=== PATIENT | male | born 1995 | race Caucasian/White ===

== ENCOUNTER 2016-09-21 00:53 | Emergency (ER) | payer OTHER ==
[2016-09-21 01:02] VITALS: RESP 18
[2016-09-21] MEDS ORDERED: DICYCLOMINE 10 MG/ML 2 ML AMP IM STA (01:08)
[2016-09-21] MEDS ORDERED: SODIUM CHLORIDE 0.9% 1,000 ML IV STA (01:08)
[2016-09-21] MEDS ORDERED: METOCLOPRAMIDE 5 MG/ML 2 ML VIAL IVP STA (01:08)
--- NOTE | 2016-09-21 01:14 | ED ---
Nausea/Vomiting/Diarrhea HPI - General Chief complaint: Nausea/Vomiting/Diarrhea Stated complaint: Flu Symptoms Time Seen by Provider: 09/21/16 01:04 Source: patient, RN notes reviewed Mode of arrival: ambulatory Limitations: no limitations - History of Present Illness Initial comments: 20-year-old male presents emergency Department chief complaint of nausea vomiting diarrhea. He's had this for the past day. Discontinued nausea vomiting diarrhea. Patient denies any fever chills. Patient states son has similar symptoms. Patient states that he was concerned due to the worsening symptoms without that he should be seen. whole belly throwing up with their is not one point that is tender.Patient denies any recent fever, chills, shortness of breath, chest pain, back pain, numbness or tingling, dysuria or hematuria, constipation or headaches or visual changes, or any other current symptoms. - Related Data Home Medications Medication Instructions Recorded Confirmed Fexofenadine/Pseudoephedrine 1 each PO DAILY 06/05/16 06/05/16 [Agnes-D 24 Hour Tablet] Previous Rx's Medication Instructions Recorded Ondansetron Odt [Zofran ODT] 4 mg PO Q8HR PRN #20 tab 09/21/16 Allergies Allergy/AdvReac Type Severity Reaction Status Date / Time cephalexin monohydrate Allergy Rash/Hives Verified 09/21/16 01:02 [From [employer]] Review of Systems ROS Statement: Those systems with pertinent positive or pertinent negative responses have been documented in the HPI. ROS Other: All systems not noted in ROS Statement are negative. Past Medical History Past Medical History: No Reported History Additional Past Medical History / Comment(s): hives with anxiety History of Any Multi-Drug Resistant Organisms: None Reported Past Surgical History: Ear Surgery, Tonsillectomy Past Psychological History: ADD/ADHD, Anxiety Smoking Status: Current every day smoker Past Alcohol Use History: None Reported Past Drug Use History: None Reported General Exam - General Exam Comments Initial Comments: General: The patient is awake and alert, in no distress, and does not appear acutely ill. Eye: Pupils are equal, round. Ears, nose, mouth and throat: There are moist mucous membranes. Neck: The neck is supple, there is no tenderness. Cardiovascular: There is a regular rate and rhythm. No murmur, rub or gallop is appreciated. Respiratory: Lungs are clear to auscultation, respirations are non-labored, breath sounds are equal. No wheezes, stridor, rales, or rhonchi. Gastrointestinal: Soft, non-distended, non-tender abdomen without masses or organomegaly noted. There is no rebound or guarding present. No CVA tenderness. Bowel sounds are unremarkable. Back: There is no tenderness to palpation in the midline. There is no obvious deformity. No rashes noted. Musculoskeletal: Normal ROM, no tenderness, There is no pedal edema. There is no calf tenderness or swelling. Sensation intact. Pulses equal bilaterally 2+. Neurological: CN II-XII intact, There are no obvious motor or sensory deficits. Coordination appears grossly intact. Speech is normal. Skin: Skin is warm and dry and no rashes or lesions are noted. Psychiatric: Cooperative, appropriate mood & affect, normal judgment. Limitations: no limitations Course Vital Signs 09/21/16 00:58 Temperature 97.8 F Pulse Rate 106 H Respiratory 18 Rate Blood Pressure 131/84 O2 Sat by Pulse 97 Oximetry - Reevaluation(s) Reevaluation #1: 09/21/16 01:31 Patient refuses x-ray. Patient statesof systemic flew his son has to include is not want the x-ray. Reevaluation #2: 09/21/16 02:13 Patient reassessed patient is feeling much better. Medical Decision Making - Medical Decision Making 20-year-old male is actively vomiting in the room presents for nausea vomiting and diarrhea. Son has similar like symptoms. At this time lab work is reviewed and patient is feeling better. We discussed at this time patient's symptoms most correlate with gastroenteritis. We did discuss other etiologies for this we discussed return parameters and follow-up. The patient stated he understood and all questions have been answered. He will be discharged. - Lab Data Result diagrams: 09/21/16 01:31 09/21/16 01:31 Lab Results 09/21/16 09/21/16 Range/Units 01: 01:31 WBC 15.4 H (4.0-11.0) k/uL RBC 5.56 (4.30-5.90) m/uL Hgb 17.3 (13.0-17.5) gm/dL Hct 51.3 (39.0-53.0) % MCV 92.3 (80.0-100.0) fL MCH 31.0 (25.0-35.0) pg MCHC 33.6 (31.0-37.0) g/dL RDW 12.2 (11.5-15.5) % Plt Count 326 (150-450) k/uL Neutrophils % 85 % Lymphocytes % 6 % Monocytes % 6 % Eosinophils % 2 % Basophils % 0 % Neutrophils # 13.0 H (1.3-7.7) k/uL Lymphocytes # 1.0 (1.0-4.8) k/uL Monocytes # 1.0 (0-1.0) k/uL Eosinophils # 0.3 (0-0.7) k/uL Basophils # 0.0 (0-0.2) k/uL Sodium 144 (137-145) mmol/L Potassium 4.2 (3.5-5.1) mmol/L Chloride 102 (98-107) mmol/L Carbon Dioxide 25 (22-30) mmol/L Anion Gap 17 mmol/L BUN 12 (9-20) mg/dL Creatinine 0.90 (0.66-1.25) mg/dL Est GFR (MDRD) Af Amer >60 (>60 ml/min/1.73 sqM) Est GFR (MDRD) Non-Af >60 (>60 ml/min/1.73 sqM) Glucose 119 H (74-99) mg/dL Calcium 10.2 (8.4-10.2) mg/dL Total Bilirubin 0.9 (0.2-1.3) mg/dL AST 41 (17-59) U/L ALT 87 H (21-72) U/L Alkaline Phosphatase 92 (38-126) U/L Total Protein 8.3 H (6.3-8.2) g/dL Albumin 5.2 H (3.5-5.0) g/dL Amylase <30 L (30-110) U/L Lipase 141 (23-300) U/L Disposition Clinical Impression: Nausea and vomiting, Diarrhea Disposition: HOME SELF-CARE Condition: Stable Instructions: Acute Nausea and Vomiting (ED) Additional Instructions: Please use medication as discussed. Please follow up with family doctor if symptoms have not improved over the next two days. Please return to the emergency room if your symptoms increase or worsen or for any other concerns. Prescriptions: Ondansetron Odt [Zofran ODT] 4 mg PO Q8HR PRN #20 tab PRN Reason: Nausea Referrals: Ronald Loo MD [Primary Care Provider] - 1-2 days Time of Disposition: 02:13
[2016-09-21 01:46] LABS: Basophils % (A) 0 %; CH 32.4; CHCM 35.2; Eosinophils # (A) 0.3 k/uL (0-0.7); Eosinophils % (A) 2 %; HCT 51.3 % (39.0-53.0); HDW 2.51; HGB 17.3 gm/dL (13.0-17.5); Luc # (Auto) 0.14; Luc % (Auto) 1; Lymphocytes % (A) 6 %; MCHC 33.6 g/dL (31.0-37.0); MCV 92.3 fL (80.0-100.0); Mean Platelet Volume 6.6; Monocytes % (A) 6 %; Neutrophils % (A) 85 %; RBC 5.56 m/uL (4.30-5.90); RDW 12.2 % (11.5-15.5); WBC 15.4 k/uL (4.0-11.0); WBC (Perox) 15.76
[2016-09-21 01:56] LABS: ALT 87 U/L (21-72); AST 41 U/L (17-59); Alkaline Phosphatase 92 U/L (38-126); Amylase <30 U/L (30-110); Anion Gap 17 mmol/L; Blood Urea Nitrogen 12 mg/dL (9-20); Calcium 10.2 mg/dL (8.4-10.2); Carbon Dioxide 25 mmol/L (22-30); Chloride 102 mmol/L (98-107); Glucose 119 mg/dL (74-99); Non-African American GFR(MDRD) >60 (>60 ml/min/1.73 sqM); Potassium 4.2 mmol/L (3.5-5.1); Sodium 144 mmol/L (137-145); Total Bilirubin 0.9 mg/dL (0.2-1.3); Total Protein 8.3 g/dL (6.3-8.2)
[2016-09-21 02:36] VITALS: BP 132/67; PULSE 96; TEMP 97.2
== END 2016-09-21 02:36 | disposition home or self-care (01) ==
LOC: EC 00:53
DX: R11.2 Nausea with vomiting, unspecified (principal); R19.7 Diarrhea, unspecified; Z79.899 Other long term (current) drug therapy; Z88.1 Allergy status to other antibiotic agents; F17.200 Nicotine dependence, unspecified, uncomplicated
CPT/HCPCS: 36415; 80053; 82150; 83690; 85025; 96372; 96374; 96361; 99283; J0500; J2765

== ENCOUNTER 2016-11-07 21:37 | Emergency (ER) | payer OTHER ==
[2016-11-07 22:30] VITALS: BP 134/81; PULSE 111; RESP 18; TEMP 99.1
--- NOTE | 2016-11-07 22:35 | ED ---
General Adult HPI - General Chief complaint: Fever Stated complaint: Fever/sore throat Time Seen by Provider: 11/07/16 22:22 Source: patient, RN notes reviewed Mode of arrival: ambulatory Limitations: no limitations - History of Present Illness Initial comments: This is a 20-year-old male presents with a fever, sore throat and congestion 3 days. Patient states he has been sleeping a lot from the symptoms. Patient has never had a measured fever but states he has had fever symptoms such as feeling hot and then feeling cold. Patient also admits to a sore throat. Patient states he feels like he has to cough but is avoiding it because this would be painful. Patient denies any shortness of breath. Patient states his has had similar symptoms. Patient denies any drug or alcohol use but admits to tobacco use. Patient denies any abdominal pain, nausea/vomiting/ diarrhea. Patient denies any recent chest pain, back pain, numbness, tingling, hematuria, or visual changes, or any other complaints. - Related Data Home Medications Medication Instructions Recorded Confirmed Fexofenadine/Pseudoephedrine 1 each PO DAILY 06/05/16 06/05/16 [Agnes-D 24 Hour Tablet] Previous Rx's Medication Instructions Recorded Ondansetron Odt [Zofran ODT] 4 mg PO Q8HR PRN #20 tab 09/21/16 Amoxicillin 1,000 mg PO DAILY 10 Days 11/07/16 Allergies Allergy/AdvReac Type Severity Reaction Status Date / Time cephalexin monohydrate Allergy Rash/Hives Verified 11/07/16 22:30 [From [employer]] Review of Systems ROS Statement: Those systems with pertinent positive or pertinent negative responses have been documented in the HPI. ROS Other: All systems not noted in ROS Statement are negative. Past Medical History Past Medical History: No Reported History Additional Past Medical History / Comment(s): hives with anxiety History of Any Multi-Drug Resistant Organisms: None Reported Past Surgical History: Ear Surgery, Tonsillectomy Past Psychological History: ADD/ADHD, Anxiety Smoking Status: Current every day smoker Past Alcohol Use History: None Reported Past Drug Use History: None Reported General Exam - General Exam Comments Initial Comments: General: The patient is awake and alert, in no distress, and does not appear acutely ill. Eye: Pupils are equal, round and reactive to light, extra-ocular movements are intact. No nystagmus. There is normal conjunctiva bilaterally. No signs of icterus. Ears: TMs pink and pearly with intact cone of light bilaterally. Normal external ear canals Nose: Nasal turbinates erythematous and edematous with drainage present bilaterally. Mouth and throat: There is erythema of the posterior pharynx. Patient has had a tonsillectomy. There are moist mucous membranes and no oral lesions. Neck: There is anterior and posterior cervical chain lymphadenopathy present and tender. The neck is supple, there is no JVD. Cardiovascular: There is a regular rate and rhythm. No murmur, rub or gallop is appreciated. Respiratory: Lungs are clear to auscultation, respirations are non-labored, breath sounds are equal. No wheezes, stridor, rales, or rhonchi. Musculoskeletal: Normal ROM, no tenderness. Strength 5/5. Sensation intact. Radial pulses equal bilaterally 2+. Neurological: A&O x 3. CN II-XII intact, There are no obvious motor or sensory deficits. Coordination appears grossly intact. Speech is normal. Skin: Skin is warm and dry and no rashes or lesions are noted. Psychiatric: Cooperative, appropriate mood & affect, normal judgment. Limitations: no limitations Course Vital Signs 11/07/16 22:26 Temperature 99.1 F Pulse Rate 111 H Respiratory 18 Rate Blood Pressure 134/81 O2 Sat by Pulse 97 Oximetry Medical Decision Making - Medical Decision Making This is a 20-year-old male patient with fever and sore throat 3 days. Patient is well-appearing and is not septic. On physical exam patient is afebrile in the EC. Lungs are clear to auscultation bilaterally. There is mild erythema of the posterior pharynx. A rapid strep was done and an influenza was checked. The rapid strep came back positive. Influenza came back negative. Patient refused a chest x-ray. I discussed the results with patient. Patient will be started on a course of amoxicillin. Patient has taken amoxicillin without any ALLERGIC reaction in the past. I discussed Tylenol or Motrin for pain and fever. Patient was given a dose of Motrin before discharge. I discussed return parameters. All patient questions were answered. I discussed the patient should drink plenty of fluids. Discussed that patient should follow up with PCP in one to 2 days or return to the EC for any worsening symptoms or for any further concerns. Patient was receptive to this plan and patient will be discharged home. - Lab Data Lab Results 11/07/16 11/07/16 Range/Units 22:34 22:34 Influenza Type A RNA Not Detected (Not Detectd) Influenza Type B (PCR) Not Detected (Not Detectd) Group A Strep Rapid Positive A (Negative) Disposition Clinical Impression: Strep throat Disposition: HOME SELF-CARE Condition: Good Instructions: Strep Throat (ED) Additional Instructions: Please finish entire course of antibiotics. Please continue Tylenol or Motrin as needed for pain and fever symptoms. Please be sure to drink plenty of fluids. Please follow-up with family doctor in the next 2 days of symptoms have not improved. Please return to emergency room if the symptoms increase or worsen or for any other concerns. Prescriptions: Amoxicillin 1,000 mg PO DAILY 10 Days Referrals: Ronald Loo MD [Primary Care Provider] - 1-2 days Time of Disposition: 22:55
[2016-11-07] MEDS ORDERED: IBUPROFEN 400 MG TAB PO STA (22:58)
== END 2016-11-07 23:08 | disposition home or self-care (01) ==
LOC: EC 21:37
DX: J02.0 Streptococcal pharyngitis (principal); Z88.1 Allergy status to other antibiotic agents; Z79.899 Other long term (current) drug therapy; F17.200 Nicotine dependence, unspecified, uncomplicated
CPT/HCPCS: 87430; 87502; 99283

== ENCOUNTER 2021-04-18 13:51 | Emergency (ER) | payer SELFPAY ==
[2021-04-18 14:26] VITALS: RESP 18; TEMP 98.2
[2021-04-18 14:39] LABS: Glucose,Whole Blood 132 mg/dL (75-99)
--- NOTE | 2021-04-18 14:40 | ED ---
General Adult HPI - General Source: patient, RN notes reviewed, old records reviewed Mode of arrival: ambulatory Limitations: no limitations <Alex Neff - Last Filed: 04/18/21 15:05> <[place] - Last Filed: 04/18/21 16:21> - General Chief complaint: Urogenital Stated complaint: UTI Time Seen by Provider: 04/18/21 14:25 - History of Present Illness Initial comments: This is a 25-year-old male who presents emergency Department complaining of dysuria and urinary frequency. Patient is his been ongoing for a couple weeks. Patient states she was in a relationship or his girlfriend was cheating on him and he is concerned that he has an STD. Patient states he's got no rashes or lesions. Patient states he has noticed the dysuria over the last few days it does seem to be getting worse. Patient states occasionally he has a little suprapubic tenderness. Patient denies any excessive thirst. Patient denies any fever chills per patient denies any back pain. (Alex Neff) - Related Data Home Medications Medication Instructions Recorded Confirmed Fexofenadine/Pseudoephedrine 1 each PO DAILY 06/05/16 06/05/16 [Agnes-D 24 Hour Tablet] Previous Rx's Medication Instructions Recorded Ondansetron Odt [Zofran ODT] 4 mg PO Q8HR PRN #20 tab 09/21/16 Amoxicillin 1,000 mg PO DAILY 10 Days capsule 11/07/16 Doxycycline [Vibramycin] 100 mg PO BID 1 Days #14 capsule 04/18/21 Allergies Allergy/AdvReac Type Severity Reaction Status Date / Time cephalexin monohydrate Allergy Rash/Hives Verified 04/18/21 14:23 [From [employer]] Review of Systems ROS Other: All systems not noted in ROS Statement are negative. <Alex Neff - Last Filed: 04/18/21 15:05> ROS Other: All systems not noted in ROS Statement are negative. <[place] - Last Filed: 04/18/21 16:21> ROS Statement: Those systems with pertinent positive or pertinent negative responses have been documented in the HPI. Past Medical History Past Medical History: No Reported History Additional Past Medical History / Comment(s): hives with anxiety History of Any Multi-Drug Resistant Organisms: None Reported Past Surgical History: Ear Surgery, Tonsillectomy Past Psychological History: ADD/ADHD, Anxiety Smoking Status: Former smoker Past Alcohol Use History: None Reported Past Drug Use History: Marijuana <Alex Neff - Last Filed: 04/18/21 15:05> General Exam Limitations: no limitations <Alex Neff - Last Filed: 04/18/21 15:05> - General Exam Comments Initial Comments: GENERAL Patient is well-developed and well-nourished. Patient is in mild distress. EYES Patient's pupils are equal and round. Extraocular motion is intact SKIN Unremarkable NEURO The patient is alert and oriented 3 PYSCH Patient has normal interpersonal interactions. MUSCULOSKELETAL Patient is full range of motion of all 4 extremity. GENITALIA On examination of his penis and scrotum as well as his testicles he was no acute normalities of swelling or erythema and no areas of tenderness. No rashes lesions were noted. (Alex Neff) Course <[place] - Last Filed: 04/18/21 16:21> Vital Signs 04/18/21 14:23 Temperature 98.2 F Pulse Rate 78 Respiratory 18 Rate Blood Pressure 124/71 O2 Sat by Pulse 98 Oximetry - Reevaluation(s) Reevaluation #1: 04/18/21 16:21 UA is receive an unremarkable patient will be discharged as planned ([place]) Medical Decision Making <Alex Neff - Last Filed: 04/18/21 15:05> - Medical Decision Making Patient received Rocephin in the mergency department. (Alex Neff) - Lab Data Lab Results 04/18/21 04/18/21 Range/Units 14:37 14:40 POC Glucose (mg/dL) 132 H (75-99) mg/dL POC Glu Finger Lift Operator ID Roseann Espino Urine Color Yellow Urine Appearance Clear (Clear) Urine pH 5.5 (5.0-8.0) Ur Specific [place] 1.028 (1.001-1.035) Urine Protein Negative (Negative) Urine Glucose (UA) Negative (Negative) Urine Ketones 1+ H (Negative) Urine Blood Negative (Negative) Urine Nitrite Negative (Negative) Urine Bilirubin Negative (Negative) Urine Urobilinogen <2.0 (<2.0) mg/dL Ur Leukocyte Esterase Negative (Negative) Disposition Is patient prescribed a controlled substance at d/c from ED?: No Time of Disposition: 15:05 <Alex Neff - Last Filed: 04/18/21 15:05> Is patient prescribed a controlled substance at d/c from ED?: No <[place] - Last Filed: 04/18/21 16:21> Clinical Impression: Concern about STD in male without diagnosis Disposition: HOME SELF-CARE Condition: Good Instructions (If sedation given, give patient instructions): Sexually Transmitted Diseases (ED) Prescriptions: Doxycycline [Vibramycin] 100 mg PO BID 1 Days #14 capsule Referrals: Nonstaff,Physician [REFERRING] - 1-2 days
[2021-04-18] MEDS: cefTRIAXone 1,000 MG VIAL (IM USE) IM STA (15:02)
[2021-04-18 15:12] LABS: Appearance,Urine Clear (Clear); Bilirubin,Urine Negative (Negative); Blood,Urine Negative (Negative); Color,Urine Yellow; Glucose,Urine (UA) Negative (Negative); Ketones,Urine 1+ (Negative); Leukocyte Esterase,Urine Negative (Negative); Nitrite,Urine Negative (Negative); PH, Urine 5.5 (5.0-8.0); Protein,Urine Negative (Negative); Specific Gravity,Urine 1.028 (1.001-1.035); Urobilinogen,Urine <2.0 mg/dL (<2.0)
[2021-04-18 16:40] VITALS: BP 134/73; PULSE 66
== END 2021-04-18 16:40 | disposition home or self-care (01) ==
LOC: EC 13:51
DX: R30.0 Dysuria (principal); Z71.1 Person with feared health complaint in whom no diagnosis is made; F41.9 Anxiety disorder, unspecified; F90.9 Attention-deficit hyperactivity disorder, unspecified type; F12.90 Cannabis use, unspecified, uncomplicated; Z87.891 Personal history of nicotine dependence
CPT/HCPCS: 36415; 81003; 87491; 87591; 99283; 96372; J0696

== ENCOUNTER 2021-04-25 10:45 | Emergency (ER) | payer SELFPAY ==
[2021-04-25 10:51] VITALS: RESP 18; TEMP 97.7
[2021-04-25] MEDS ORDERED: methylPREDNISolone SOD SUCCI 125 MG/2 ML VIAL IM ONE (11:20)
--- NOTE | 2021-04-25 12:09 | XR ---
EXAMINATION TYPE: XR lumbar spine 2 or 3V DATE OF EXAM: 04/25/2021 COMPARISON: NONE HISTORY: 25 years Male. STUDY INDICATION GIVEN: low back pain . TECHNIQUE: 3 radiographs of the lumbar spine IMPRESSION: There is straightening of the lumbar curvature. There are 5 nonrib-bearing lumbar-type vertebral bodi es. No acute fracture or dislocation is seen. There is posterior translation of L5 over S1 with severe narrowing of the intervertebral space at the same level. There is also apparent mild narrowing at L5-S1 neural foraminal spaces. There are facet joint arthropathy changes at L4-5 and L5-S1. Noncontrast enhanced lumbar spine MRI recommended, could be performed on outpatient basis.
[2021-04-25 12:20] LABS: Appearance,Urine Clear (Clear); Bilirubin,Urine Negative (Negative); Blood,Urine Negative (Negative); Color,Urine Yellow; Glucose,Urine (UA) Negative (Negative); Ketones,Urine Negative (Negative); Leukocyte Esterase,Urine Negative (Negative); Nitrite,Urine Negative (Negative); Protein,Urine Negative (Negative); Specific Gravity,Urine 1.019 (1.001-1.035); Urobilinogen,Urine <2.0 mg/dL (<2.0)
--- NOTE | 2021-04-25 12:51 | US ---
EXAMINATION TYPE: US scrotum with doppler. Grayscale and color Doppler Duplex imaging performed of jeffrey dowling scrotum. DATE OF EXAM: 04/25/2021 COMPARISON: NONE CLINICAL HISTORY: left testicle pain. EXAM MEASUREMENTS: TESTICLES: Right Testicle: 4.5 x 3.2 x 2.5 cm Left Testicle: 4.2 x 2.5 x 2.5 cm EPIDIDYMIS HEAD: Right Epididymis: 0.7 x 1.0 x 1.2 cm Left Epididymis: 0.5 x 1.1 x 1.2 cm Doppler performed to assess for testicular vascularity; bilateral color flow and waveforms are seen. Presence of hydroceles: Right: 1.8 x 1.5 x 0.7 cm. Left: 2.1 x 0.9 x 0.7 cm. Presence of varicoceles: None seen. IMPRESSION: Small bilateral left greater than right hydrocele. No evidence for torsion or testicular mass .
--- NOTE | 2021-04-25 13:18 | ED ---
Male Urogenital HPI - General Chief complaint: Urogenital Stated complaint: Revisit Male Time Seen by Provider: 04/25/21 10:57 Source: patient, RN notes reviewed Mode of arrival: ambulatory Limitations: no limitations - History of Present Illness Initial comments: Patient is a 25-year-old male that presents to emergency department complaining of left testicle pain and numbness and tingling down his left leg. He denied any trauma to his low back. He notes that he was seen approximately a week ago for a possible UTI or STI. He notes that he has discomfort on ejaculation. He notes is not follow-up with urologist yet. He notes he came in for reevaluation due to continued discomfort. He denied any other issues or complaints at this time. He was otherwise a well-appearing 25-year-old male in no apparent distress or pain. He denied any chest pain shortness breath headache nausea vomiting diarrhea constipation fever fatigue chills. - Related Data Home Medications Medication Instructions Recorded Confirmed Fexofenadine/Pseudoephedrine 1 each PO DAILY 06/05/16 06/05/16 [Agnes-D 24 Hour Tablet] Previous Rx's Medication Instructions Recorded Ondansetron Odt [Zofran ODT] 4 mg PO Q8HR PRN #20 tab 09/21/16 Amoxicillin 1,000 mg PO DAILY 10 Days capsule 11/07/16 Doxycycline [Vibramycin] 100 mg PO BID 1 Days #14 capsule 04/18/21 Allergies Allergy/AdvReac Type Severity Reaction Status Date / Time cephalexin monohydrate Allergy Rash/Hives Verified 04/25/21 10:51 [From [employer]] Review of Systems ROS Statement: Those systems with pertinent positive or pertinent negative responses have been documented in the HPI. ROS Other: All systems not noted in ROS Statement are negative. Past Medical History Past Medical History: No Reported History Additional Past Medical History / Comment(s): hives with anxiety History of Any Multi-Drug Resistant Organisms: None Reported Past Surgical History: Ear Surgery, Tonsillectomy Past Psychological History: ADD/ADHD, Anxiety Smoking Status: Former smoker Past Alcohol Use History: None Reported Past Drug Use History: Marijuana General Exam Limitations: no limitations General appearance: alert, in no apparent distress Head exam: Present: atraumatic, normocephalic, normal inspection Eye exam: Present: normal appearance, PERRL, EOMI. Absent: scleral icterus, conjunctival injection, periorbital swelling Neck exam: Present: normal inspection Respiratory exam: Present: normal lung sounds bilaterally. Absent: respiratory distress, wheezes, rales, rhonchi, stridor Cardiovascular Exam: Present: regular rate, normal rhythm, normal heart sounds. Absent: systolic murmur, diastolic murmur, rubs, gallop, clicks GI/Abdominal exam: Present: soft, normal bowel sounds. Absent: distended, tenderness, guarding, rebound, rigid exam: Present: normal inspection, circumcision. Absent: testicular tenderness, urethral discharge, scrotal swelling Extremities exam: Present: normal inspection, full ROM, normal capillary refill. Absent: tenderness, pedal edema, joint swelling, calf tenderness Neurological exam: Present: alert, oriented X3 Psychiatric exam: Present: normal affect, normal mood Skin exam: Present: warm, dry, intact, normal color. Absent: rash Course Vital Signs 04/25/21 10:48 Temperature 97.7 F Pulse Rate 70 Respiratory 18 Rate Blood Pressure 137/90 O2 Sat by Pulse 100 Oximetry Medical Decision Making - Medical Decision Making 25-year-old male complaining of left testicle pain pain on the left leg and low back pain. Urinalysis, x-ray lumbar spine, scrotal ultrasound ordered. X-ray shows chronic lumbar spine changes. Ultrasound showed bilateral hydroceles left greater than the right. Urinalysis unremarkable. Case discussed with Dr. Martínez, patient discharge home with follow-up to primary care and urologist. - Lab Data Lab Results 04/25/21 Range/Units 11:36 Urine Color Yellow Urine Appearance Clear (Clear) Urine pH 7.0 (5.0-8.0) Ur Specific [place] 1.019 (1.001-1.035) Urine Protein Negative (Negative) Urine Glucose (UA) Negative (Negative) Urine Ketones Negative (Negative) Urine Blood Negative (Negative) Urine Nitrite Negative (Negative) Urine Bilirubin Negative (Negative) Urine Urobilinogen <2.0 (<2.0) mg/dL Ur Leukocyte Esterase Negative (Negative) - Radiology Data Radiology results: report reviewed, image reviewed Scrotal ultrasound: Small bilateral left greater than right hydrocele and no evidence for torsion or testicular mass. Lumbar spine x-ray: There is straightening of the lumbar curvature. There are 59 rib bearing lumbar type vertebral bodies. No acute fracture dislocation seen. There is posterior translation of L5 over S1 with severe narrowing of the intervertebral space at the same level. There is also apparent mild narrowing L5-S1 neural 4. There are facet joint arthropathy changes at L4-L5 and L5-S1. Noncontrast enhanced lumbar spine MRI recommended could be performed on an o utpatient basis. Disposition Clinical Impression: Bilateral hydrocele, Lumbar pain, Lumbar radiculopathy Disposition: HOME SELF-CARE Condition: Stable Instructions (If sedation given, give patient instructions): Lumbar Radiculopathy (ED) Additional Instructions: Please return to the Emergency Department if symptoms worsen or any other concerns. Follow-up primary care 1-2 days. Follow-up with urologist the next week. Take Tylenol Motrin as needed for pain. Is patient prescribed a controlled substance at d/c from ED?: No Referrals: Herberth Mcdonough DO [Primary Care Provider] - 1-2 days Christopher Dueñas MD [STAFF PHYSICIAN] - 1-2 days Time of Disposition: 13:24
[2021-04-25 14:16] VITALS: BP 134/72; PULSE 71
== END 2021-04-25 14:06 | disposition home or self-care (01) ==
LOC: EC 10:45
DX: N43.3 Hydrocele, unspecified (principal); M54.16 Radiculopathy, lumbar region; F12.90 Cannabis use, unspecified, uncomplicated; Z87.891 Personal history of nicotine dependence; Z88.1 Allergy status to other antibiotic agents
CPT/HCPCS: 81003; 72100; 93975; 76870; 96372; 99284; J2930

== ENCOUNTER 2022-07-17 17:58 | Emergency (ER) | payer BC ==
[2022-07-17 18:25] VITALS: RESP 16; TEMP 98.6
[2022-07-17 18:56] LABS: Appearance,Urine Clear (Clear); Bilirubin,Urine Negative (Negative); Blood,Urine Negative (Negative); Color,Urine Light Yellow; Glucose,Urine (UA) Negative (Negative); Ketones,Urine Negative (Negative); Leukocyte Esterase,Urine Negative (Negative); Nitrite,Urine Negative (Negative); Protein,Urine Negative (Negative); Specific Gravity,Urine 1.012 (1.001-1.035); Urobilinogen,Urine <2.0 mg/dL (<2.0)
[2022-07-17] MEDS ORDERED: ONDANSETRON 4 MG/2 ML VIAL IVP STA (20:20)
[2022-07-17] MEDS ORDERED: HYDROmorphone 1 MG/ML 1 ML SYRINGE IVP STA (20:20)
[2022-07-17] MEDS ORDERED: SODIUM CHLORIDE 0.9% 1,000 ML IV STA (20:20)
--- NOTE | 2022-07-17 20:30 | ED ---
Abdominal Pain HPI - General Chief Complaint: Abdominal Pain Stated Complaint: gallbladder pain Time Seen by Provider: 07/17/22 20:15 Source: patient, RN notes reviewed Mode of arrival: ambulatory Limitations: no limitations - History of Present Illness Initial Comments: This is a pleasant 26-year-old male presents to emergency room with recurrent right upper quadrant abdominal pain which radiates to the right scapular area. Patient states his been going on for about 4 days. It is exacerbated by movement at times but more commonly by eating. Described a sharp pain in the right upper quadrant. Patient has had some nausea but no vomiting. No fever. No changes in bowel movements urination. No headache, no fever or chills, no changes in vision or hearing, no sore throat or difficulty with speech, no neck pain, no chest pain or shortness of breath, no changes in urination or bowel movements, no numbness or tingling, no extremity pain, no skin rashes or lesions. Past medical, surgical, social, and family history reviewed. MD Complaint: abdominal pain - Related Data Home Medications Medication Instructions Recorded Confirmed Albuterol Inhaler [Ventolin Hfa 1 - 2 puff INHALATION RT-Q6H PRN 07/17/22 07/17/22 Inhaler] FLUoxetine HCL [PROzac] 20 mg PO DAILY 07/17/22 07/17/22 Omeprazole 40 mg PO DAILY 07/17/22 07/17/22 Previous Rx's Medication Instructions Recorded Naproxen [Naprosyn] 375 mg PO Q12HR PRN #20 tablet 07/17/22 Allergies Allergy/AdvReac Type Severity Reaction Status Date / Time cephalexin monohydrate Allergy Rash/Hives Verified 07/17/22 18:25 [From [employer]] Review of Systems ROS Statement: Those systems with pertinent positive or pertinent negative responses have been documented in the HPI. ROS Other: All systems not noted in ROS Statement are negative. Past Medical History Past Medical History: No Reported History Additional Past Medical History / Comment(s): hives with anxiety History of Any Multi-Drug Resistant Organisms: None Reported Past Surgical History: Ear Surgery, Tonsillectomy Past Psychological History: ADD/ADHD, Anxiety Smoking Status: Former smoker Past Alcohol Use History: None Reported Past Drug Use History: Marijuana General Exam - General Exam Comments Initial Comments: Patient does not appear to be ill or toxic. Vital signs are reviewed. Capillary refill less than 2 seconds. No mottling. Limitations: no limitations General appearance: alert, in no apparent distress Head exam: Present: atraumatic, normocephalic, normal inspection Eye exam: Present: normal appearance, PERRL, EOMI. Absent: scleral icterus, conjunctival injection, periorbital swelling ENT exam: Present: normal exam, mucous membranes moist Neck exam: Present: normal inspection, full ROM. Absent: tenderness, meningismus, lymphadenopathy Respiratory exam: Present: normal lung sounds bilaterally. Absent: respiratory distress, wheezes, rales, rhonchi, stridor Cardiovascular Exam: Present: regular rate, normal rhythm, normal heart sounds. Absent: systolic murmur, diastolic murmur, rubs, gallop, clicks GI/Abdominal exam: Present: soft, tenderness (Right upper quadrant), guarding (Right upper quadrant), normal bowel sounds. Absent: distended, rebound, rigid Extremities exam: Present: normal inspection, full ROM, normal capillary refill. Absent: tenderness, pedal edema, joint swelling, calf tenderness Back exam: Present: normal inspection Neurological exam: Present: alert, oriented X3, CN II-XII intact Psychiatric exam: Present: normal affect, normal mood Skin exam: Present: warm, dry, intact, normal color. Absent: rash Course Vital Signs 07/17/22 07/17/22 18:23 22:48 Temperature 98.6 F Pulse Rate 77 83 Respiratory 16 16 Rate Blood Pressure 123/67 125/73 O2 Sat by Pulse 97 98 Oximetry Medical Decision Making - Medical Decision Making Patient symptomology most indicative of gallbladder disease. However, gastritis, peptic ulcer disease, other intra-abdominal inflammatory etiologies possible. Not consistent with cardiopulmonary disease. Patient was told to return to the ER for any signs or symptoms worsen. Told to return immediately if any other problems arise. All questions answered. Treatment plan discussed. Patient in agreement Every effort has been made to ensure accuracy of this dictation. However, due to the limitations of electronic medical records and dictation devices, errors in charting still occur. Carly Smith - Lab Data Result diagrams: 07/17/22 20:46 07/17/22 20:46 Lab Results 07/17/22 07/17/22 07/17/22 Range/Units 18:25 20:46 20:46 WBC 9.3 (3.8-10.6) k/uL RBC 4.47 (4.30-5.90) m/uL Hgb 14.9 (13.0-17.5) gm/dL Hct 41.6 (39.0-53.0) % MCV 93.0 (80.0-100.0) fL MCH 33.3 (25.0-35.0) pg MCHC 35.8 (31.0-37.0) g/dL RDW 12.1 (11.5-15.5) % Plt Count 310 (150-450) k/uL MPV 7.2 Neutrophils % 62 % Lymphocytes % 26 % Monocytes % 6 % Eosinophils % 4 % Basophils % 1 % Neutrophils # 5.7 (1.3-7.7) k/uL Lymphocytes # 2.4 (1.0-4.8) k/uL Monocytes # 0.5 (0-1.0) k/uL Eosinophils # 0.3 (0-0.7) k/uL Basophils # 0.1 (0-0.2) k/uL Sodium 139 (137-145) mmol/L Potassium 4.3 (3.5-5.1) mmol/L Chloride 104 (98-107) mmol/L Carbon Dioxide 28 (22-30) mmol/L Anion Gap 7 mmol/L BUN 12 (9-20) mg/dL Creatinine 0.86 (0.66-1.25) mg/dL Est GFR (CKD-EPI)AfAm >90 (>60 ml/min/1.73 sqM) Est GFR (CKD-EPI)NonAf >90 (>60 ml/min/1.73 sqM) Glucose 95 (74-99) mg/dL Calcium 9.2 (8.4-10.2) mg/dL Total Bilirubin 0.4 (0.2-1.3) mg/dL AST 40 (17-59) U/L ALT 46 (4-49) U/L Alkaline Phosphatase 63 (38-126) U/L Total Protein 7.6 (6.3-8.2) g/dL Albumin 5.0 (3.5-5.0) g/dL Amylase 51 (30-110) U/L Lipase 176 (23-300) U/L Urine Color Light Yellow Urine Appearance Clear (Clear) Urine pH 7.0 (5.0-8.0) Ur Specific [place] 1.012 (1.001-1.035) Urine Protein Negative (Negative) Urine Glucose (UA) Negative (Negative) Urine Ketones Negative (Negative) Urine Blood Negative (Negative) Urine Nitrite Negative (Negative) Urine Bilirubin Negative (Negative) Urine Urobilinogen <2.0 (<2.0) mg/dL Ur Leukocyte Esterase Negative (Negative) - Radiology Data Radiology results: report reviewed, image reviewed Abdominal x-rays and ultrasound interpreted by me shows no evidence of acute pathology. Concur with the radiology interpretation. Disposition Clinical Impression: Right upper quadrant abdominal pain Narrative: Probable biliary colic Disposition: HOME SELF-CARE Condition: Good Instructions (If sedation given, give patient instructions): Biliary Colic (ED), Low Fat Diet (ED), Abdominal Pain (ED) Additional Instructions: Follow-up with your regular physician as directed. Return to the ER immediately if any symptoms worsen, new symptoms arise, or any other problems develop. Call at 8 PM Tuesday morning to make an appointment with the surgeon. Prescriptions: Naproxen [Naprosyn] 375 mg PO Q12HR PRN #20 tablet PRN Reason: Pain Is patient prescribed a controlled substance at d/c from ED?: No Referrals: Alicia Durham DO [Doctor of Osteopathic Medicine] - 07/19/22 8:00 am Time of Disposition: 22:23
--- NOTE | 2022-07-17 20:58 | XR ---
EXAMINATION TYPE: XR abdomen acute w cxr DATE OF EXAM: 07/17/2022 COMPARISON: NONE HISTORY: Right upper quadrant pain TECHNIQUE: 4 views FINDINGS: Heart and mediastinum are normal. Lungs are clear. Diaphragm is normal. Bony thorax is inta ct. The bowel gas pattern is normal. No sign of intestinal obstruction or pneumoperitoneum. Fecal pattern is normal. No pathologic calcification over the kidneys. IMPRESSION: Nonacute abdomen.
[2022-07-17 21:03] LABS: Basophils # (A) 0.1 k/uL (0-0.2); Basophils % (A) 1 %; Eosinophils # (A) 0.3 k/uL (0-0.7); Eosinophils % (A) 4 %; HCT 41.6 % (39.0-53.0); HGB 14.9 gm/dL (13.0-17.5); Lymphocytes # (A) 2.4 k/uL (1.0-4.8); Lymphocytes % (A) 26 %; MCH 33.3 pg (25.0-35.0); MCHC 35.8 g/dL (31.0-37.0); Mean Platelet Volume 7.2; Monocytes # (A) 0.5 k/uL (0-1.0); Monocytes % (A) 6 %; Neutrophils # (A) 5.7 k/uL (1.3-7.7); Neutrophils % (A) 62 %; Platelet Count 310 k/uL (150-450); RBC 4.47 m/uL (4.30-5.90); RDW 12.1 % (11.5-15.5); WBC 9.3 k/uL (3.8-10.6)
--- NOTE | 2022-07-17 21:43 | US ---
EXAMINATION TYPE: US gallbladder DATE OF EXAM: 07/17/2022 COMPARISON: NONE CLINICAL HISTORY: Right upper quadrant pain. RUQ pain that radiates to back. TECHNIQUE: Multiple sonographic images of the right upper quadrant are obtained. FINDINGS: EXAM MEASUREMENTS: Liver Length: 18.3 cm Gallbladder Wall: 0.2 cm CBD: 0.3 cm Right Kidney: 10.1 x 5.3 x 4.5 cm CUSTOMS COMPLIANCE ANALYST NOTES: Limited due to bowel gas Pancreas: Body and tail obscured by overlying bowel gas Liver: Appears enlarged in size Gallbladder: wnl Evidence for sonographic Stoner's sign: neg CBD: wnl Right Kidney: No hydronephrosis or masses seen IMPRESSION: No gallstones or dilated ducts. Negative exam.
[2022-07-17 21:51] LABS: ALT 46 U/L (4-49); AST 40 U/L (17-59); African American GFR (CKD) >90 (>60 ml/min/1.73 sqM); Alkaline Phosphatase 63 U/L (38-126); Amylase 51 U/L (30-110); Anion Gap 7 mmol/L; Blood Urea Nitrogen 12 mg/dL (9-20); Calcium 9.2 mg/dL (8.4-10.2); Carbon Dioxide 28 mmol/L (22-30); Chloride 104 mmol/L (98-107); Glucose 95 mg/dL (74-99); Lipase 176 U/L (23-300); Non-African American GFR(CKD) >90 (>60 ml/min/1.73 sqM); Potassium 4.3 mmol/L (3.5-5.1); Sodium 139 mmol/L (137-145); Total Bilirubin 0.4 mg/dL (0.2-1.3); Total Protein 7.6 g/dL (6.3-8.2)
[2022-07-17] MEDS ORDERED: ACET/COD 300 MG/30 MG STARTER PACK 6 TAB BTL PO STA (22:20)
[2022-07-17] MEDS ORDERED: IBUPROFEN 600 MG STARTER PACK 4 TAB BTL PO STA (22:20)
[2022-07-17 22:49] VITALS: BP 125/73; PULSE 83
== END 2022-07-17 22:48 | disposition home or self-care (01) ==
LOC: EC 17:58
DX: R10.11 Right upper quadrant pain (principal); F41.9 Anxiety disorder, unspecified; F90.9 Attention-deficit hyperactivity disorder, unspecified type; F12.90 Cannabis use, unspecified, uncomplicated; Z87.891 Personal history of nicotine dependence; Z79.899 Other long term (current) drug therapy; Z88.1 Allergy status to other antibiotic agents
CPT/HCPCS: 36415; 80053; 82150; 83690; 85025; 81003; 74022; 76705; 99284; 96374; 96375; 96361; J2405; J1170

== ENCOUNTER → 2022-11-04 | Outpatient (CLI) | payer BC ==
--- NOTE | 2022-11-04 09:43 | NM ---
EXAMINATION TYPE: NM hepatobiliary w EF DATE OF EXAM: 11/04/2022 9:15 AM COMPARISON: Gallbladder ultrasound 07/17/2022. CLINICAL INDICATION:Male, 26 years old with history of R10.11; TECHNIQUE: The patient was given 5.2 mCi of Technetium 99m-Mebrofenin as a radiotracer and multiple scintigraphic images were obtained of the abdomen. Gallbladder function was also assessed after the a dministration of 4 mL of Sincalide (cholecystokinin) and additional scintigraphic images were obtaine d of the abdomen. A region of interest was drawn over the gallbladder and a timing activity curve was generated. The gallbladder ejection fraction was calculated. FINDINGS: Normal uptake of radiotracer was identified within the liver within 5 minutes with excretion into the hepatic and common biliary ducts within 240 seconds. There was normal progressive washout of the adam er over the course of the study. Radiotracer uptake within the gallbladder 6 minutes as well as small bowel activity was identified at 18 minutes. Maximum calculated gallbladder ejection fraction is: 21% at 30 minutes (Normal gallbladder ejection fraction is > 35%) IMPRESSION: 1. Normal hepatobiliary scan. 2. Abnormal ejection fraction consistent with functional bladder disorder.
== END | disposition home or self-care (01) ==
LOC: RADNMMAIN 10-28 06:38
PROVIDERS: ATTEND Family Medicine
DX: R10.11 Right upper quadrant pain (principal)
CPT/HCPCS: 78226; A9537

== ENCOUNTER → 2023-03-02 | Outpatient (CLI) | payer BC ==
[2023-03-02 15:26] LABS: HCT 44.6 % (39.6-50.0); HGB 14.7 d/dL (12.0-15.0); MCH 31.6 pg (27.0-32.0); MCV 95.9 FL (80.0-97.0); Mean Platelet Volume 9.2 FL (9.5-12.2); NRBC Per 100 WBC 0 X 10*3/uL (0.00-0.01); Platelet Count 248 X 10*3/uL (140-440); RBC 4.65 X 10*6/uL (4.40-5.60); RDW 11.8 % (11.5-14.5); WBC 6.47 X 10*3/uL (4.50-10.00)
== END | disposition home or self-care (01) ==
LOC: LABPAT 10:00
PROVIDERS: ATTEND Surgery Plastic and Reconstructive Surgery
DX: Z01.812 Encounter for preprocedural laboratory examination (principal); K81.9 Cholecystitis, unspecified
CPT/HCPCS: 85027

== ENCOUNTER 2023-03-04 10:45 | Day surgery (SDC) | payer BC ==
[2023-03-01 11:14] VITALS: BMI 30.7
--- NOTE | 2023-03-04 06:44 | P.GSHP ---
History of Present Illness H&P Date: 03/04/23 CHIEF COMPLAINT: Cholecystitis HISTORY OF PRESENT ILLNESS: The patient is a 27-year-old male who presents with history of epigastric including right upper quadrant abdominal pain. He underwent diagnostic studies for the gallbladder. Separately his clinical picture was consistent with cholecystitis. Now he presents for surgical intervention. PAST MEDICAL HISTORY: Please see list PAST SURGICAL HISTORY: Please see list MEDICATIONS: Please see list ALLERGIES: Denies. SOCIAL HISTORY: No illicit drug use or recent tobacco use FAMILY HISTORY: Pertinent for gallbladder disease REVIEW OF ORGAN SYSTEMS: CONSTITUTIONAL: No reports of fevers or chills. HEENT: Denies any troubles with the vision or hearing. ENDOCRINE: No reports of hypothyroidism. No diabetes. RESPIRATORY: No recent pneumonias. CARDIOVASCULAR: Denies chest pain or palpitations GI: No blood in stools or constipation. MUSCULOSKELETAL: Has occasional joint pain including back pain. NEURO: No seizure disorders or headaches. No recent stroke. PSYCH: No depression or suicidal ideation. HEMATOLOGIC: No personal or family history of DVTs or pulmonary emboli. PHYSICAL EXAM: VITAL SIGNS: Afebrile vital signs stable GENERAL: Well-developed pleasant male in no acute distress. HEENT: No scleral icterus. Extraocular movements grossly intact. Moist buccal mucosa. NECK: Supple without lymphadenopathy. CHEST: Unlabored respirations. Equal bilateral excursions. CARDIOVASCULAR: Regular rate regular rhythm rhythm. Distal 2+ pulses. ABDOMEN: Soft, nondistended. Tender along the epigastrium and right upper quadrant. MUSCULOSKELETAL: No clubbing, cyanosis, or edema. NEURO : No focal or lateralizing signs. Cranial nerves II-12 within normal limits. PSYCH: Alert and oriented to person, place and time. SKIN: Well perfused. Good skin turgor. ASSESSMENT: 1. Epigastric and right upper quadrant abdominal pain 2. Chronic cholecystitis PLAN: 1. Will need a robotic cholecystectomy possible open. Benefits and risks were described. 2. Heparin for DVT prophylaxis 5000 units. 3. Antibiotic prophylaxis. Past Medical History Past Medical History: No Reported History Additional Past Medical History / Comment(s): hives with anxiety. GALLBLADDER History of Any Multi-Drug Resistant Organisms: None Reported Past Surgical History: Ear Surgery, Tonsillectomy Past Anesthesia/Blood Transfusion Reactions: No Reported Reaction Smoking Status: Current every day smoker - Past Family History Mother Family Medical History: No Reported History Medications and Allergies Home Medications Medication Instructions Recorded Confirmed Type Albuterol Inhaler [Ventolin Hfa 1 - 2 puff INHALATION RT-Q6H PRN 07/17/22 07/17/22 History Inhaler] FLUoxetine HCL [PROzac] 20 mg PO DAILY 07/17/22 07/17/22 History Naproxen [Naprosyn] 375 mg PO Q12HR PRN #20 tablet 07/17/22 Rx Omeprazole 40 mg PO DAILY 07/17/22 07/17/22 History Allergies Allergy/AdvReac Type Severity Reaction Status Date / Time cephalexin monohydrate Allergy Rash/Hives Verified 03/01/23 11:00 [From [facility]
[~2023-03-04 10:45] MED LIST: ACETAMINOPHEN TAB 500 MG TAB PO PRN; HEPARIN SODIUM,PORCINE/PF 5,000 UNIT/0.5 ML SYRINGE SQ PRN; HYDROmorphone 0.5 MG/0.5 ML SYRINGE IVP PRN; INDOCYANINE GREEN 25 MG VIAL IV STA; LACTATED RINGERS 1,000 ML IV SCH; MIDAZOLAM 2 MG/2 ML VIAL IV PRN; ONDANSETRON 4 MG/2 ML VIAL IVP PRN
[2023-03-04] MEDS ORDERED: DEXAMETHASONE SOD PHOSPHATE 4 MG/ML 1 ML VIAL IVP ONE (11:23)
[2023-03-04 11:25] LABS: Basophils % (A) 1 %; Eosinophils # (A) 0.3 k/uL (0-0.7); Eosinophils % (A) 5 %; HCT 45.5 % (39.0-53.0); HGB 15.3 gm/dL (13.0-17.5); Lymphocytes % (A) 31 %; MCHC 33.7 g/dL (31.0-37.0); MCV 94.9 fL (80.0-100.0); Mean Platelet Volume 6.8; Monocytes # (A) 0.4 k/uL (0-1.0); Monocytes % (A) 7 %; Neutrophils # (A) 3.5 k/uL (1.3-7.7); Neutrophils % (A) 55 %; Platelet Count 270 k/uL (150-450); RDW 11.9 % (11.5-15.5); WBC 6.4 k/uL (3.8-10.6)
[2023-03-04 11:42] LABS: ALT 58 U/L (4-49); AST 39 U/L (17-59); African American GFR (CKD) >90 (>60 ml/min/1.73 sqM); Albumin 4.7 g/dL (3.5-5.0); Alkaline Phosphatase 67 U/L (38-126); Anion Gap 11 mmol/L; Blood Urea Nitrogen 11 mg/dL (9-20); Calcium 9.6 mg/dL (8.4-10.2); Carbon Dioxide 26 mmol/L (22-30); Chloride 104 mmol/L (98-107); Glucose 102 mg/dL (74-99); Non-African American GFR(CKD) >90 (>60 ml/min/1.73 sqM); Potassium 4.5 mmol/L (3.5-5.1); Sodium 141 mmol/L (137-145); Total Bilirubin 0.9 mg/dL (0.2-1.3); Total Protein 7.6 g/dL (6.3-8.2)
[2023-03-04] MEDS ORDERED: PROPOFOL 10 MG/ML 20 ML VIAL IV ONE (12:44)
[2023-03-04] MEDS ORDERED: MIDAZOLAM 2 MG/2 ML VIAL ONE (12:44)
[2023-03-04] MEDS ORDERED: NEOSTIGMINE 1 MG/ML 10 ML VIAL ONE (12:44)
[2023-03-04] MEDS ORDERED: fentaNYL (PF) 50 MCG/ML 2 ML AMP ONE (12:44)
[2023-03-04] MEDS ORDERED: KETOROLAC 15 MG/ML 1 ML VIAL ONE ×2 (12:44→15:33)
[2023-03-04] MEDS ORDERED: ROCURONIUM 10 MG/ML (5 ML VIAL) IV ONE (12:44)
[2023-03-04] MEDS ORDERED: HYDROmorphone (PF) 1 MG/ML ONE (12:44)
[2023-03-04] MEDS ORDERED: GLYCOPYRROLATE 0.2 MG/ML 2 ML VIAL ONE (12:44)
[2023-03-04] MEDS ORDERED: SUCCINYLCHOLINE CHLORIDE 200 MG/10 ML VIAL IV ONE (12:44)
[2023-03-04] MEDS ORDERED: LABETALOL 5 MG/ML VIAL MDV ONE (12:44)
[2023-03-04] MEDS ORDERED: LIDOCAINE 2% INJ 20 MG/ML (2 ML VIAL) ONE (12:44)
[2023-03-04] MEDS ORDERED: LIDOCAINE 2%-EPI 1:100,000 20 ML VIAL SQ ONE ×2 (13:11→13:24)
[2023-03-04 14:32] VITALS: TEMP 97.2
--- NOTE | 2023-03-04 14:50 | P.OP ---
Date of Procedure: 03/04/23 Description of Procedure: SURGEON: KIARA FISCHER MD PREOPERATIVE DIAGNOSES: 1. Symptomatic gallstones 2. Right upper quadrant abdominal pain 3. Gastroesophageal reflux disease 4. Asthma 5. Obesity due to excess calories, BMI 33.2 6. Generalized anxiety disorder 7. Tobacco abuse disorder 8. Attention deficit disorder with attention deficit hyperactive disorder POSTOPERATIVE DIAGNOSES: 1. Symptomatic gallstone 2. Right upper quadrant abdominal pain 3. Chronic cholecystitis 4. Fatty liver disease with hepatomegaly 5. Obesity due to excess calories, BMI 33.2 6. Generalized anxiety disorder 7. Tobacco abuse disorder 8. Attention deficit disorder with attention deficit hyperactive disorder 9. Gastroesophageal reflux disease 10. Asthma OPERATION: Robotic-assisted da Bethany Xi laparoscopic cholecystectomy, multiport with FIREFLY ESTIMATED BLOOD LOSS: 5 mL. SPECIMENS REMOVED: Gallbladder. COMPLICATIONS: None. OPERATIVE FINDINGS: 1. Fatty liver disease with hepatomegaly 2. Chronic cholecystitis INDICATIONS: The patient is a 27-year-old male who presents with symptomatic gallstones. Robotic assisted laparoscopic approach was described. Benefits and risks of the procedure including but not limited to bleeding, infection, injury to the biliary tree was described. Informed consent was obtained. DESCRIPTION OF PROCEDURE: Patient was brought to the operating room, placed in supine position. After general induction, the abdomen had been prepped and draped in standard sterile fashion. The robotic da Bethany XI system was primed. After a timeout protocol was performed, the patient had been prepped and draped in standard sterile fashion. The patient was injected with indocyanine green. A 5 mm 0 degrees laparoscopic trocar entry was performed along the left upper quadrant. The abdomen insufflated to 15 mmHg pressure which was tolerated well. Diagnostic laparoscopy demonstrated no injury to bowel viscera or mesentery. The liver surface was unremarkable. Next, two 8 mm robotic ports were placed along the right upper abdomen. The camera 8-mm port was maintained along the epigastrium. Another 8 mm port was placed along the left upper abdominal wall after exchanging the 5 mm port. Please note that the ports were placed at least 10 to 15 cm away from the target anatomy of the gallbladder. The robot was docked along the left lateral abdomen. The patient was repositioned in reverse Trendelenburg position. Using a grasper for arm 3, a grasper for arm 4, including hook cautery for arm 1, the robotic system was docked and primed as described. Instruments were interchanged by the certified physician assistant including hook cautery, Bovie ca utery and clip appliers. I had sat at the console. Next attention was brought to the infundibulum and cystic structures. The infundibulum and cystic duct were dissected free from surrounding tissues. The cystic duct was isolated. FIREFLY was used to identify the cystic artery and cystic structures. A critical view of safety was obtained. Large PLASTIC clips were used throughout the entire case. Using a clip surveillance manager, 2 clips were placed at the junction of the infundibulum and cystic duct. The cystic duct was divided between clips. Next, the cystic artery was similarly clipped and cauterized. Electro-Bovie cautery was used to remove the gallbladder from the hepatic fossa. Hemostasis was checked and found to be adequate. The robot was undocked. I re-scrubbed into the case. Using a 10 mm Endo Catch bag via the left upper quadrant incision, the specimen was removed from the abdominal cavity. All pneumoperitoneum instruments were evacuated from the abdominal cavity. The incisions were reapproximated using 4-0 Monocryl in an interrupted subcuticular fashion. Fascial defects were less than 8 mm in size. Please note along the trocar sites, local anesthetic was placed as a field block prior to insertion of all instruments. Liquid glue was applied to the skin. At the end of the procedure needle, sponge, and instrument count had been verified correct by the domestic technician. The patient was transferred to postanesthesia care unit in stable condition. Intraoperative films were shared with the patient's family. Plan - Discharge Summary Discharge Rx Participant: Yes New Discharge Prescriptions: New Ibuprofen [Motrin] 600 mg PO Q8HR PRN #30 tab PRN Reason: Pain Acetaminophen Tab [Tylenol Tab] 1,000 mg PO Q6HR PRN #30 tablet PRN Reason: Pain Simethicone [Gas-X] 125 mg PO AC-TID PRN #20 capsule PRN Reason: Pain Continue Albuterol Inhaler [Ventolin Hfa Inhaler] 1 - 2 puff INHALATION RT-Q6H PRN PRN Reason: Shortness Of Breath Omeprazole 40 mg PO DAILY Naproxen [Naprosyn] 375 mg PO Q12HR PRN #20 tablet PRN Reason: Pain Discharge Medication List Albuterol Inhaler [Ventolin Hfa Inhaler] 1 - 2 puff INHALATION RT-Q6H PRN 07/17/22 [History] Naproxen [Naprosyn] 375 mg PO Q12HR PRN #20 tablet 07/17/22 [Rx] Omeprazole 40 mg PO DAILY 07/17/22 [History] Acetaminophen Tab [Tylenol Tab] 1,000 mg PO Q6HR PRN #30 tablet 03/04/23 [Rx] Ibuprofen [Motrin] 600 mg PO Q8HR PRN #30 tab 03/04/23 [Rx] Simethicone [Gas-X] 125 mg PO AC-TID PRN #20 capsule 03/04/23 [Rx] Follow up Appointment(s)/Referral(s): Kiara Fischer MD [STAFF PHYSICIAN] - 03/08/23 Patient Instructions/Handouts: *Surgery [facility] - Laparoscopic Cholecystectomy Discharge Instructions, *[facility] - (Anesthesia) Discharge Instructions Outpatient Surgery, Low Fat Diet (DC) Activity/Diet/Wound Care/Special Instructions: TELEHEALTH - DR WILL CALL YOU BETWEEN 8 am to 8 pm Recommend low-fat diet for the next 2 days. No lifting over 10 pounds in 2 weeks until March 18December shower. No bath tub soaks for two weeks until March 18 Diet as tolerated. Use Tylenol, simethicone and ibuprofen or Aleve scheduled for the next 24-48 hours for best pain relief. Use ice along incisions for today to prevent swelling. YOU NEED TO MONITOR YOUR BLOOD PRESSURE AT HOME. IF IT REMAINS HIGH, CALL TO SCHEDULE AN APPOINTMENT WITH YOUR FAMILY DOCTOR. Discharge Disposition: HOME SELF-CARE
[2023-03-04 15:18] VITALS: RESP 20
[2023-03-04] MEDS ORDERED: KETOROLAC 15 MG/ML 1 ML VIAL IVP ONE (15:30)
[2023-03-04 15:57] VITALS: BP 120/76; PULSE 55
== END 2023-03-04 16:38 | disposition home or self-care (01) ==
LOC: OR 10:45
PROVIDERS: ATTEND Surgery Plastic and Reconstructive Surgery
DX: K80.10 Calculus of gallbladder with chronic cholecystitis without obstruction (principal); K21.9 Gastro-esophageal reflux disease without esophagitis; J45.909 Unspecified asthma, uncomplicated; E66.09 Other obesity due to excess calories; F90.9 Attention-deficit hyperactivity disorder, unspecified type; K76.0 Fatty (change of) liver, not elsewhere classified; Z68.33 Body mass index [BMI] 33.0-33.9, adult; F17.200 Nicotine dependence, unspecified, uncomplicated; Z98.890 Other specified postprocedural states; Z90.89 Acquired absence of other organs; Z79.51 Long term (current) use of inhaled steroids; Z79.899 Other long term (current) drug therapy
CPT/HCPCS: 88304; 80053; 85025; 47563; J2250; J0330; J1100; J2710; J0690; J2405; J3010; J1170 ×2; J1885; J2704; J1644; J2001

== ENCOUNTER → 2023-06-13 | Outpatient (CLI) | payer BC ==
--- NOTE | 2023-06-13 08:57 | CT ---
EXAMINATION TYPE: CT abdomen pelvis wo con CT DLP: 1125.0 mGycm, Automated exposure control for dose reduction was used. DATE OF EXAM: 06/13/2023 8:43 AM COMPARISON: CT abdomen pelvis 03/13/2023 CLINICAL INDICATION:Male, 27 years old with history of R10.9 unspecified abdominal pain; Unspecified abdominal pain TECHNIQUE: Standard CT of the abdomen and pelvis without IV or oral contrast. Lack of IV or oral co ntrast limits evaluation of solid and hollow organ viscera. Coronal and sagittal reformats were perfo rmed. FINDINGS: LOWER CHEST: Unremarkable ABDOMEN LIVER: Enlarged measuring 19.1 cm in CC dimension. Mild steatosis. GALLBLADDER AND BILE DUCTS: The gallbladder is surgically absent. No biliary ductal dilatation. PANCREAS: Unremarkable. SPLEEN: Unremarkable. ADRENAL GLANDS: Unremarkable. KIDNEYS AND URETERS: No evidence of hydronephrosis. Nonobstructive 2 mm calculus within the right mid kidney. Additional nonobstructive 2 mm calculus within the lower pole of the left kidney. Resolution of previously demonstrated right ureteral calculus. No perinephric fluid collections. Resolution of right perinephric fat stranding and hydronephrosis. PELVIS BLADDER: Unremarkable REPRODUCTIVE: Unremarkable. ABDOMEN & PELVIS STOMACH AND BOWEL: Stomach and duodenum are unremarkable. No focal bowel wall thickening or surroundi ng inflammatory changes. The appendix is within normal limits. No evidence of bowel obstruction. PERITONEUM: No evidence of pneumoperitoneum or free fluid. VASCULATURE: No evidence of aortic aneurysm. MUSCULOSKELETAL: No acute osseous abnormalities LYMPH NODES: No gross evidence for lymphadenopathy. SOFT TISSUE/ABDOMINAL WALL: Unremarkable IMPRESSION: 1. No acute process. Resolution of right-sided hydronephrosis and right ureter calculus. 2. Nonobstructive bilateral renal calculi. 3. Mild hepatic steatosis and hepatomegaly.
== END | disposition home or self-care (01) ==
LOC: RADCTMAIN 08:11
PROVIDERS: ATTEND Family Medicine
DX: N20.0 Calculus of kidney (principal); K76.0 Fatty (change of) liver, not elsewhere classified; R16.0 Hepatomegaly, not elsewhere classified
CPT/HCPCS: 74176

== ENCOUNTER → 2024-03-12 | Outpatient (CLI) | payer BC ==
[2024-03-12 15:30] LABS: Appearance,Urine Clear (Clear); Bilirubin,Urine Negative (Negative); Blood,Urine Negative (Negative); Color,Urine Yellow (Yellow); Ketones,Urine Negative (Negative); Nitrite,Urine Negative (Negative); Specific Gravity,Urine 1.003 (1.001-1.030); Urobilinogen,Urine 0.2 E.U./DL
[2024-03-12 16:23] LABS: Basophils # (A) 0.03 X 10*3/uL (0.00-0.10); Basophils % (A) 0.4 %; Eosinophils # (A) 0.15 X 10*3/uL (0.04-0.35); Eosinophils % (A) 2.2 %; HCT 42.6 % (39.6-50.0); HGB 14.4 g/dL (13.0-17.0); Lymphocytes # (A) 1.24 X 10*3/uL (0.90-5.00); Lymphocytes % (A) 18.1 %; MCH 31.5 pg (27.0-32.0); MCHC 33.8 g/dL (32.0-37.0); MCV 93.2 FL (80.0-97.0); Mean Platelet Volume 9.5 FL (9.5-12.2); Monocytes # (A) 0.46 X 10*3/uL (0.20-1.00); Monocytes % (A) 6.7 %; NRBC Per 100 WBC 0 X 10*3/uL (0.00-0.01); Neutrophils # (A) 4.92 X 10*3/uL (1.80-7.70); Platelet Count 251 X 10*3/uL (140-440); RBC 4.57 X 10*6/uL (4.40-5.60); RDW 11.7 % (11.5-14.5); WBC 6.84 X 10*3/uL (4.50-10.00)
[2024-03-12 16:37] LABS: Erythrocyte Sedimentation Rate 12 mm/Hr (0-15)
[2024-03-12 17:21] LABS: ALT 61 U/L (10-49); AST 31 U/L (14-35); Albumin 4.9 g/dL (3.8-4.9); Albumin/Globulin Ratio 2.13 Ratio (1.60-3.17); Alkaline Phosphatase 67 U/L (41-126); Amylase 44 U/L (23-121); Blood Urea Nitrogen 9.1 mg/dL (9.0-27.0); Calcium 9.3 mg/dL (8.7-10.3); Carbon Dioxide 26.1 mmol/L (21.6-31.8); Chloride 104 mmol/L (96-109); Globulin 2.3 g/dL (1.6-3.3); Glucose 111 mg/dL (70-110); Lipase 34 U/L (14-60); Sodium 141 mmol/L (135-145); Total Bilirubin 0.4 mg/dL (0.3-1.2); Total Protein 7.2 g/dL (6.2-8.2)
[2024-03-12 17:26] LABS: Hepatitis C IgG Antibody Nonreactive (Nonreactive)
[2024-03-12 20:20] LABS: HSV I IgG Interp Negative (Negative); HSV II IgG Interp Negative (Negative)
[2024-03-12 20:52] LABS: HIV 2 AB Non-Reactive (Non-Reactive); HIV AB P24 Non-Reactive (Non-Reactive); HIV P24 AG Non-Reactive (Non-Reactive)
[2024-03-13 13:03] LABS: C. trachomatis,PCR Negative (Negative)
[2024-03-13 13:19] LABS: N. gonorrhoeae,PCR Negative (Negative)
== END | disposition home or self-care (01) ==
LOC: LABWHC1 09:16
PROVIDERS: ATTEND Physician Assistant
DX: Z11.3 Encounter for screening for infections with a predominantly sexual mode of transmission (principal); R10.9 Unspecified abdominal pain
CPT/HCPCS: 36415; 80053; 81003; 82150; 83690; 85025; 85652; 86695; 86696; 86803; 87390; 87491; 87591

== ENCOUNTER 2024-03-17 16:42 | Emergency (ER) | payer BC ==
--- NOTE | 2024-03-17 17:10 | ED ---
Abdominal Pain HPI - General Chief Complaint: Abdominal Pain Stated Complaint: Right flank pain Time Seen by Provider: 03/17/24 16:53 Source: patient Mode of arrival: ambulatory Limitations: no limitations - History of Present Illness Initial Comments: 28-year-old male presenting with chief complaint of right-sided flank pain. Ongoing for about 1 week. Patient does have history of kidney stones, concerned that this may be another kidney stone. He also admits to diarrhea. No dysuria or hematuria. No fever. - Related Data Home Medications Medication Instructions Recorded Confirmed Albuterol Inhaler [Ventolin Hfa 1 - 2 puff INHALATION RT-Q6H PRN 07/17/22 03/04/23 Inhaler] Omeprazole 40 mg PO DAILY 07/17/22 03/04/23 Previous Rx's Medication Instructions Recorded Naproxen [Naprosyn] 375 mg PO Q12HR PRN #20 tablet 07/17/22 Acetaminophen Tab [Tylenol Tab] 1,000 mg PO Q6HR PRN #30 tablet 03/04/23 Ibuprofen [Motrin] 600 mg PO Q8HR PRN #30 tab 03/04/23 Simethicone [Gas-X] 125 mg PO AC-TID PRN #20 capsule 03/04/23 HYDROcodone/APAP 5-325MG [[place] 1 tab PO Q6HR PRN #12 tab 03/13/23 5-325] Ibuprofen [Motrin] 600 mg PO Q8HR PRN #24 tab 03/13/23 Tamsulosin [Flomax] 0.4 mg PO DAILY #7 cap 03/13/23 Allergies Allergy/AdvReac Type Severity Reaction Status Date / Time cephalexin monohydrate Allergy Rash/Hives Verified 03/17/24 16:49 [From Keflex] Review of Systems ROS Statement: Those systems with pertinent positive or pertinent negative responses have been documented in the HPI. ROS Other: All systems not noted in ROS Statement are negative. Past Medical History Past Medical History: No Reported History Additional Past Medical History / Comment(s): hives with anxiety. kidney stones History of Any Multi-Drug Resistant Organisms: None Reported Past Surgical History: Cholecystectomy, Ear Surgery, Tonsillectomy Past Anesthesia/Blood Transfusion Reactions: No Reported Reaction Past Psychological History: ADD/ADHD, Anxiety Smoking Status: Current every day smoker Past Alcohol Use History: None Reported Past Drug Use History: None Reported - Past Family History Mother Family Medical History: No Reported History General Exam Limitations: no limitations General appearance: alert, in no apparent distress Head exam: Present: atraumatic, normocephalic Eye exam: Present: normal appearance, EOMI Neck exam: Present: normal inspection. Absent: meningismus Respiratory exam: Absent: respiratory distress Cardiovascular Exam: Present: regular rate GI/Abdominal exam: Present: soft, tenderness. Absent: distended, guarding, rebound, rigid Neurological exam: Present: alert, oriented X3 Psychiatric exam: Present: normal affect, normal mood Skin exam: Present: warm, dry Course Vital Signs 03/17/24 03/17/24 03/17/24 16:46 18:47 19:55 Temperature 98.3 F 98.4 F Pulse Rate 73 62 72 Respiratory 18 18 16 Rate Blood Pressure 138/78 116/67 135/84 O2 Sat by Pulse 99 96 98 Oximetry Medical Decision Making - Medical Decision Making Was pt. sent in by a medical professional or institution (, PA, SECURITY TESTER, urgent care, hospital, or halfway...) When possible be specific @ -No Did you speak to anyone other than the patient for history (EMS, parent, family, police, friend...)? What history was obtained from this source @ -No Did you review nursing and triage notes (agree or disagree)? Why? @ -I reviewed and agree with nursing and triage notes Were old charts reviewed (outside hosp., previous admission, EMS record, old EKG, old radiological studies, urgent care reports/EKG's, halfway records)? Report findings @ -No old charts were reviewed Differential Diagnosis (chest pain, altered mental status, abdominal pain women, abdominal pain men, vaginal bleeding, weakness, fever, dyspnea, syncope, headache, dizziness, GI bleed, back pain, seizure, CVA, palpatations, mental health, musculoskeletal)? @ -MDM Differential Abdominal Pain Men: Appendicitis, cholecystitis, diverticulosis, ischemic bowel, pancreatitis, hepatitis, UTI, gastroenteritis, AAA, incarcerated hernia, bowel obstruction, constipation, inflammatory bowel, hepatitis, peptic ulcer disease, splenic infarction, perforated viscus, testicular torsion... This is not meant to be an all-inclusive list EKG interpreted by me (3pts min.). @ -As above X-rays interpreted by me (1pt min.). @ -None done CT interpreted by me (1pt min.). @ -CT shows suspected tiny nonobstructing stone in the kidney measuring approximately 1 mm. No imaging findings to explain patient's symptoms U/S interpreted by me (1pt. min.). @ -None done What testing was considered but not performed or refused? (CT, X-rays, U/S, labs)? Why? @ -None What meds were considered but not given or refused? Why? @ -None Did you discuss the management of the patient with other professionals (professionals i.e. , PA, SECURITY TESTER, lab, RT, psych nurse, certified social workers in health care, drafter detail, teacher, combatant diver officer, counseling case manager)? Give summary @ -No Was smoking cessation discussed for >3mins.? @ -No Was critical care preformed (if so, how long)? @ -No Were there social determinants of health that impacted care today? How? (Homelessness, low income, unemployed, alcoholism, drug addiction, transportation, low edu. Level, literacy, decrease access to med. care, snf, rehab)? @ -No Was there de-escalation of care discussed even if they declined (Discuss DNR or withdrawal of care, Hospice)? DNR status @ -No What co-morbidities impacted this encounter? (DM, HTN, Smoking, COPD, CAD, Ca ncer, CVA, ARF, Chemo, Hep., AIDS, mental health diagnosis, sleep apnea, morbid obesity)? @ -None Was patient admitted / discharged? Hospital course, mention meds given and route, prescriptions, significant lab abnormalities, going to OR and other pertinent info. @ -28-year-old male presenting with chief complaint of right flank pain. History of kidney stones. History and physical examination are conducted. Lab work shows no leukocytosis or anemia. Lipase is mildly elevated at 339, otherwi se remainder of lab work is unremarkable. CT shows nonobstructing stone and no other explanation for the patient's pain. Patient is educated on today's findings. Discharged. Follow-up with PCP. Report back to ER with any new or worsening symptoms. Discussed return parameters and answered all questions. Patient conveyed verbal understanding and agreed to the plan. I discussed this case in detail with my attending Dr. Salcedo Undiagnosed new problem with uncertain prognosis? @ -No Drug Therapy requiring intensive monitoring for toxicity (Heparin, Nitro, Insulin, Cardizem)? @ -No Were any procedures done? @ -No Diagnosis/symptom? @ -Abdominal pain Acute, or Chronic, or Acute on Chronic? @ -Acute Uncomplicated (without systemic symptoms) or Complicated (systemic symptoms)? @ -uncomplicated Side effects of treatment? @ -No Exacerbation, Progression, or Severe Exacerbation? @ -No Poses a threat to life or bodily function? How? (Chest pain, USA, DC, pneumonia, PE, COPD, DKA, ARF, appy, cholecystitis, CVA, Diverticulitis, Homicidal, Suicidal, threat to staff... and all critical care pts) @ -Low likelihood - Lab Data Result diagrams: 03/17/24 17:45 03/17/24 17:45 Lab Results 03/17/24 03/17/24 03/17/24 Range/Units 17:45 17:45 17:45 WBC 7.5 (3.8-10.6) k/uL RBC 4.37 (4.30-5.90) m/uL Hgb 13.9 (13.0-17.5) gm/dL Hct 41.1 (39.0-53.0) % MCV 94.0 (80.0-100.0) fL MCH 31.8 (25.0-35.0) pg MCHC 33.9 (31.0-37.0) g/dL RDW 12.0 (11.5-15.5) % Plt Count 262 (150-450) k/uL MPV 6.8 Neutrophils % 61 % Lymphocytes % 25 % Monocytes % 6 % Eosinophils % 6 % Basophils % 0 % Neutrophils # 4.6 (1.3-7.7) k/uL Lymphocytes # 1.9 (1.0-4.8) k/uL Monocytes # 0.5 (0-1.0) k/uL Eosinophils # 0.4 (0-0.7) k/uL Basophils # 0.0 (0-0.2) k/uL Sodium 141 (137-145) mmol/L Potassium 4.1 (3.5-5.1) mmol/L Chloride 106 (98-107) mmol/L Carbon Dioxide 27 (22-30) mmol/L Anion Gap 8 mmol/L BUN 9 (9-20) mg/dL Creatinine 0.79 (0.66-1.25) mg/dL Est GFR (CKD-EPI)AfAm >90 (>60 ml/min/1.73 sqM) Est GFR (CKD-EPI)NonAf >90 (>60 ml/min/1.73 sqM) Glucose 88 (74-99) mg/dL Plasma Lactic Acid Ferdinand 1.3 (0.7-2.0) mmol/L Calcium 9.6 (8.4-10.2) mg/dL Total Bilirubin 0.4 (0.2-1.3) mg/dL AST 31 (17-59) U/L ALT 43 (4-49) U/L Alkaline Phosphatase 57 (38-126) U/L Total Protein 7.2 (6.3-8.2) g/dL Albumin 4.7 (3.5-5.0) g/dL Amylase 56 (30-110) U/L Lipase 339 H (23-300) U/L Urine Color Urine Appearance (Clear) Urine pH (5.0-8.0) Ur Specific [place] (1.001-1.035) Urine Protein (Negative) Urine Glucose (UA) (Negative) Urine Ketones (Negative) Urine Blood (Negative) Urine Nitrite (Negative) Urine Bilirubin (Negative) Urine Urobilinogen (<2.0) mg/dL Ur Leukocyte Esterase (Negative) 03/17/24 Range/Units 17:45 WBC (3.8-10.6) k/uL RBC (4.30-5.90) m/uL Hgb (13.0-17.5) gm/dL Hct (39.0-53.0) % MCV (80.0-100.0) fL MCH (25.0-35.0) pg MCHC (31.0-37.0) g/dL RDW (11.5-15.5) % Plt Count (150-450) k/uL MPV Neutrophils % % Lymphocytes % % Monocytes % % Eosinophils % % Basophils % % Neutrophils # (1.3-7.7) k/uL Lymphocytes # (1.0-4.8) k/uL Monocytes # (0-1.0) k/uL Eosinophils # (0-0.7) k/uL Basophils # (0-0.2) k/uL Sodium (137-145) mmol/L Potassium (3.5-5.1) mmol/L Chloride (98-107) mmol/L Carbon Dioxide (22-30) mmol/L Anion Gap mmol/L BUN (9-20) mg/dL Creatinine (0.66-1.25) mg/dL Est GFR (CKD-EPI)AfAm (>60 ml/min/1.73 sqM) Est GFR (CKD-EPI)NonAf (>60 ml/min/1.73 sqM) Glucose (74-99) mg/dL Plasma Lactic Acid [place] (0.7-2.0) mmol/L Calcium (8.4-10.2) mg/dL Total Bilirubin (0.2-1.3) mg/dL AST (17-59) U/L ALT (4-49) U/L Alkaline Phosphatase (38-126) U/L Total Protein (6.3-8.2) g/dL Albumin (3.5-5.0) g/dL Amylase (30-110) U/L Lipase (23-300) U/L Urine Color Colorless Urine Appearance Clear (Clear) Urine pH 6.5 (5.0-8.0) Ur Specific [place] 1.005 (1.001-1.035) Urine Protein Negative (Negative) Urine Glucose (UA) Negative (Negative) Urine Ketones Negative (Negative) Urine Blood Negative (Negative) Urine Nitrite Negative (Negative) Urine Bilirubin Negative (Negative) Urine Urobilinogen <2.0 (<2.0) mg/dL Ur Leukocyte Esterase Negative (Negative) Disposition Clinical Impression: Abdominal pain Disposition: HOME SELF-CARE Condition: Good Instructions (If sedation given, give patient instructions): Abdominal Pain (ED) Additional Instructions: Follow-up with PCP. Report back to ER with any new or worsening symptoms. Is patient prescribed a controlled substance at d/c from ED?: No Referrals: Herberth Mcdonough DO [Primary Care Provider] - 03/21/24 Time of Disposition: 19:48
[2024-03-17] MEDS: SODIUM CHLORIDE 0.9% 1,000 ML IV STA (17:36)
[2024-03-17] MEDS: KETOROLAC 15 MG/ML 1 ML VIAL IVP STA (17:37)
[2024-03-17] MEDS: ONDANSETRON 4 MG/2 ML VIAL IVP STA (17:37)
[2024-03-17 17:58] LABS: Basophils % (A) 0 %; Eosinophils # (A) 0.4 k/uL (0-0.7); Eosinophils % (A) 6 %; HCT 41.1 % (39.0-53.0); HGB 13.9 gm/dL (13.0-17.5); Lymphocytes # (A) 1.9 k/uL (1.0-4.8); Lymphocytes % (A) 25 %; MCH 31.8 pg (25.0-35.0); MCHC 33.9 g/dL (31.0-37.0); Mean Platelet Volume 6.8; Monocytes # (A) 0.5 k/uL (0-1.0); Monocytes % (A) 6 %; Neutrophils # (A) 4.6 k/uL (1.3-7.7); Neutrophils % (A) 61 %; Platelet Count 262 k/uL (150-450); RBC 4.37 m/uL (4.30-5.90); WBC 7.5 k/uL (3.8-10.6)
[2024-03-17 18:12] LABS: ALT 43 U/L (4-49); AST 31 U/L (17-59); African American GFR (CKD) >90 (>60 ml/min/1.73 sqM); Albumin 4.7 g/dL (3.5-5.0); Alkaline Phosphatase 57 U/L (38-126); Amylase 56 U/L (30-110); Anion Gap 8 mmol/L; Blood Urea Nitrogen 9 mg/dL (9-20); Calcium 9.6 mg/dL (8.4-10.2); Carbon Dioxide 27 mmol/L (22-30); Chloride 106 mmol/L (98-107); Glucose 88 mg/dL (74-99); Lipase 339 U/L (23-300); Non-African American GFR(CKD) >90 (>60 ml/min/1.73 sqM); Potassium 4.1 mmol/L (3.5-5.1); Sodium 141 mmol/L (137-145); Total Bilirubin 0.4 mg/dL (0.2-1.3); Total Protein 7.2 g/dL (6.3-8.2)
[2024-03-17 18:14] LABS: Appearance,Urine Clear (Clear); Bilirubin,Urine Negative (Negative); Blood,Urine Negative (Negative); Color,Urine Colorless; Glucose,Urine (UA) Negative (Negative); Ketones,Urine Negative (Negative); Leukocyte Esterase,Urine Negative (Negative); Nitrite,Urine Negative (Negative); PH, Urine 6.5 (5.0-8.0); Protein,Urine Negative (Negative); Specific Gravity,Urine 1.005 (1.001-1.035); Urobilinogen,Urine <2.0 mg/dL (<2.0)
--- NOTE | 2024-03-17 19:00 | CT ---
EXAMINATION TYPE: CT abdomen pelvis w con CT DLP: 1466.7 mGycm, Automated exposure control for dose reduction was used. DATE OF EXAM: 03/17/2024 6:42 PM COMPARISON: CT abdomen pelvis most recent from 06/13/2023 CLINICAL INDICATION:Male, 28 years old with history of RUQ pain; RUQ pain. Hx of kidney stones TECHNIQUE: Axial CT abdomen pelvis w con;Sagittal and coronal reformats were created on a separate w orkstation. Contrast used:100 ml mL of Isovue 300 with IV Contrast, (none if empty) Oral contrast used: without Oral Contrast (none if empty) FINDINGS: LOWER CHEST: Unremarkable ABDOMEN LIVER: Unremarkable GALLBLADDER AND BILE DUCTS: Unremarkable. PANCREAS: Unremarkable. SPLEEN: Unremarkable. ADRENAL GLANDS: Unremarkable. KIDNEYS AND URETERS: No evidence of hydronephrosis or obstructive uropathy. The ureters are unremarka ble. Question of tiny 1 mm left stone PELVIS BLADDER: Unremarkable REPRODUCTIVE: Unremarkable. ABDOMEN & PELVIS STOMACH AND BOWEL: Normal appendix identified. No evidence of bowel obstruction. PERITONEUM/RETROPERITONEUM: No evidence of pneumoperitoneum or free fluid. VASCULATURE: No evidence of aortic aneurysm. MUSCULOSKELETAL: No acute osseous abnormalities LYMPH NODES: No gross evidence for lymphadenopathy. SOFT TISSUE/ABDOMINAL WALL: Unremarkable IMPRESSION: 1. Suspected tiny nonobstructing stone kidney measuring approximately 1 mm. 2. No imaging findings to explain patient's symptoms.
[2024-03-17 19:56] VITALS: BP 135/84; PULSE 72; RESP 16; TEMP 98.4
== END 2024-03-17 19:55 | disposition home or self-care (01) ==
LOC: EC 16:42
DX: R10.9 Unspecified abdominal pain (principal); F17.200 Nicotine dependence, unspecified, uncomplicated; Z88.8 Allergy status to other drugs, medicaments and biological substances; Z87.442 Personal history of urinary calculi
CPT/HCPCS: 36415; 80053; 82150; 83605; 83690; 85025; 81003; 74177; 99284; 96374; 96375; 96361; J2405; J1885; Q9967

== ENCOUNTER → 2024-03-30 | Outpatient (CLI) | payer BC ==
--- NOTE | 2024-04-24 09:07 | US ---
Patient: Joey Che Ordering Physician: Unknown, Unknown ID: [id number] Phone, Pager: Phone: N/ A Pager: N/A : [phone] Age/Gender: 28Y, O Primary Location: N/A Procedure: US abdomen comp/pelvis limited Study Date: 03/27/2024 8:35:00 AM EXAMINATION TYPE: US abdomen comp/pelvis limited DATE OF EXAM: 04/12/2024 COMPARISON: NONE CLINICAL INDICATION: Unknown, old with history of ; History: Pain within the right side x 2 weeks. Hx cholecystectomy. Hx kidney stones. Aorta: wnl IVC: wnl Pancreas: not well seen Liver: 18.0 cm Enlarged with increased echogenicity. Coarse in echotexture. -hypoechoic, indistinct area seen within the liver near the luz hepatis: 2.5 x 2.2 x 1.1 cm-?focal fatty sparing. CBD: 0.38 cm. WNL Gallbladder: surgically absent. Rt Kidney: 10.6 x 5.4 x 4.6 cm. WNL Lt Kidney: 10.7 x 4.4 x 4.7 cm. WNL Spleen: 11.5 cm, WNL Bladder: Appears wnl. Bilateral jets seen. Exam is limited due to gas. IMPRESSION: 1. Hepatomegaly with underlying hepatic steatosis. Follow area of focal fatty sparing.
== END | disposition home or self-care (01) ==
LOC: RADUSWWP 08:00
PROVIDERS: ATTEND Family Medicine
DX: R10.9 Unspecified abdominal pain (principal); K76.0 Fatty (change of) liver, not elsewhere classified; Z90.49 Acquired absence of other specified parts of digestive tract
CPT/HCPCS: 76700; 76857

== ENCOUNTER → 2024-08-02 | Outpatient (CLI) | payer BC ==
--- NOTE | 2024-08-02 11:23 | XR ---
EXAMINATION TYPE: XR Hip Complete RT DATE OF EXAM: 08/02/2024 10:40 AM COMPARISON: None. CLINICAL INDICATION: Male, 28 years old with history of M25.551 PAIN IN RIGHT HIP, TECHNIQUE: 2 view(s) obtained of the right hip and supplemented with an AP pelvis. FINDINGS: Femoral heads articulate with the acetabulum. Joint space narrowing is present diffusely. Sacral Jaylan c joints are normal. IMPRESSION: 1. Acute osseous mild right pelvis [facility], , 08/02/2024 11:20 AM
== END | disposition home or self-care (01) ==
LOC: RADXRMAIN 10:25
PROVIDERS: ATTEND Family Medicine
DX: M25.551 Pain in right hip (principal)
CPT/HCPCS: 73502

== ENCOUNTER → 2024-11-16 | Day surgery (SDC) | payer BC ==
[~2024-11-16] MED LIST changes: -ACETAMINOPHEN TAB 500 MG TAB PO PRN; -HEPARIN SODIUM,PORCINE/PF 5,000 UNIT/0.5 ML SYRINGE SQ PRN; -HYDROmorphone 0.5 MG/0.5 ML SYRINGE IVP PRN; -INDOCYANINE GREEN 25 MG VIAL IV STA; -MIDAZOLAM 2 MG/2 ML VIAL IV PRN; -ONDANSETRON 4 MG/2 ML VIAL IVP PRN; +PROPOFOL 10 MG/ML 20 ML VIAL IV ONE
[2024-11-16] MEDS: LACTATED RINGERS 500 ML IV ONE ×2 (11:44→12:35)
[2024-11-16 11:50] VITALS: TEMP 97.9
--- NOTE | 2024-11-16 12:50 | P.PCN ---
Date of Procedure: 11/16/24 Procedure(s) Performed: BRIEF HISTORY: Patient is a 28-year-old pleasant white male scheduled for an elective colonoscopy as a part of evaluation of right-sided abdominal pain associate with intermittent nausea vomiting and change in bowel habits for the last 6 months duration PROCEDURE PERFORMED: Colonoscopy. PREOPERATIVE DIAGNOSIS: Right-sided abdominal pain and change in bowel habits. IV sedation per Anesthesia. PROCEDURE: After informed consent was obtained, the patient, was brought into the endoscopy unit. IV sedation was administered by Anesthesia under continuous monitoring. Digital rectal examination was normal. Initially the Olympus CF-160 flexible video colonoscope was then inserted in the rectum, gradually advanced into the cecum without any difficulty. Careful examination was performed as the scope was gradually being withdrawn. Ileocecal valve and the appendiceal orifice were visualized and appeared normal. Prep was excellent. Terminal ileum was intubated and 20 cm visualized appeared normal. mucosa of the cecum, ascending colon, transverse colon, descending colon, sigmoid colon, and rectum appeared normal. Retroflexion was performed in the rectum and no lesions were seen. The patient tolerated the procedure well. IMPRESSION: Normal-appearing colon from rectum to cecum with no evidence of colitis or colorectal neoplasia. Normal-appearing terminal ileum. RECOMMENDATIONS: Findings of this examination were discussed with the patient as well as his family. He was advised to start on a high-fiber diet and fiber supplements on a regular basis. Follow-up in the office if he has worsening symptoms
[2024-11-16 13:11] VITALS: BP 129/81; PULSE 71; RESP 16
== END ==
LOC: ORWHC2ENDO 10:56
PROVIDERS: ATTEND Internal Medicine Gastroenterology
DX: R19.4 Change in bowel habit (principal); F17.210 Nicotine dependence, cigarettes, uncomplicated; F41.9 Anxiety disorder, unspecified; Z90.89 Acquired absence of other organs; Z91.040 Latex allergy status; Z79.899 Other long term (current) drug therapy
CPT/HCPCS: 45378; J2704

== ENCOUNTER → 2024-12-13 | Outpatient (CLI) | payer BC ==
--- NOTE | 2024-12-13 09:43 | XR ---
EXAMINATION TYPE: XR chest 2V DATE OF EXAM: 12/13/2024 9:37 AM COMPARISON: Acute abdominal series 07/17/2022 TECHNIQUE: XR chest 2V Frontal and lateral views of the chest. CLINICAL INDICATION:Male, 28 years old with history of Z87.891 hx tobacco dependence; FINDINGS: Lungs/Pleura: There is no evidence of pleural effusion, focal consolidation, or pneumothorax. Pulmonary vascularity: Unremarkable. Heart/mediastinum: Cardiomediastinal silhouette is unremarkable. Musculoskeletal: No acute osseous pathology. IMPRESSION: No acute cardiopulmonary disease/process. [facility], , 12/13/2024 9:40 AM
== END | disposition home or self-care (01) ==
LOC: RADXRMAIN 09:18
PROVIDERS: ATTEND Family Medicine
DX: Z87.891 Personal history of nicotine dependence (principal)
CPT/HCPCS: 71046